=== PATIENT | female | born 1955 | race Caucasian/White ===

== ENCOUNTER 2018-12-12 05:27 | Day surgery (SDC) | payer MEDICARE ==
[2018-12-12] MEDS ORDERED: Midazolam 1 MG/ML 2 ML SDV IV ONE ×5 (05:28→06:41)
[2018-12-12] MEDS ORDERED: fentaNYL 100 MCG/2 ML SDV IV ONE ×3 (05:28→06:35)
[2018-12-12] MEDS ORDERED: Midazolam 1 MG/ML 2 ML SDV ONE (06:18)
[2018-12-12] MEDS ORDERED: fentaNYL 100 MCG/2 ML SDV ONE (06:19)
--- NOTE | 2018-12-12 07:28 | OR ---
DATE: 12/12/2018 PROCEDURE: Total colonoscopy. INSTRUMENT USED: [id number] Olympus video colonoscope. PREMEDICATIONS: Fentanyl 100 mcg intravenous, Versed 3 mg intravenous, nasal O2 cannula. The procedure was done under pulse oximetry, BP recording, and gambling monitor INDICATION: Screening colonoscopic examination is done for detection of any polypoid lesions and removal, endoscopic hemostasis therapy if needed. DESCRIPTION OF PROCEDURE: Initial rectal exam was unremarkable. Rigid anoscopy showed small internal hemorrhoids without bleeding from them. The colonoscope was passed with ease. Numerous scattered diverticula were noted in the entire colon, more so in the distal left colon along with deformity. The scope was passed with ease up to the ileocecal area. Photographs were taken of the normal- appearing cecum identified by landmarks of appendiceal orifice and double-bulged ileocecal folds. No bleeding was noted from any of the visualized areas of the examination. The bowel preparation was found to adequate, [place] scale 3. No stricture. No vascular ectasia. No large isolated ulcerations seen. No evidence of diffuse inflammatory bowel disease in the form of friability, contact bleeding, or ulcerations. No polyp or tumor mass identified. Probing the proximal sides of folds and flexures using adequate distention and clearing up the stool material, withdrawal of the scope was made. Cecum to rectum time over 6 minutes. No bleeding was noted from any of the visualized areas at the completion of examination. IMPRESSION: 1. Internal hemorrhoids. 2. Declo diverticulosis. The patient tolerated the procedure well. [facility] /[id number]
[2018-12-12] MEDS ORDERED: Sodium Chloride 0.9% 10 ML Syringe FLUSH PRN (07:36)
[2018-12-12] MEDS ORDERED: Dextrose 5%-0.45% NaCl 1,000 ML IV SCH (07:45)
== END 2018-12-12 08:50 | disposition home or self-care (01) ==
LOC: DL.ENDO 05:27
PROVIDERS: ATTEND Internal Medicine Gastroenterology
DX: Z12.11 Encounter for screening for malignant neoplasm of colon (principal); K57.30 Diverticulosis of large intestine without perforation or abscess without bleeding; K64.8 Other hemorrhoids; K63.89 Other specified diseases of intestine; I10 Essential (primary) hypertension; E11.9 Type 2 diabetes mellitus without complications; E78.5 Hyperlipidemia, unspecified; E66.09 Other obesity due to excess calories; F17.210 Nicotine dependence, cigarettes, uncomplicated; Z95.0 Presence of cardiac pacemaker; Z95.5 Presence of coronary angioplasty implant and graft; Z79.84 Long term (current) use of oral hypoglycemic drugs; Z68.41 Body mass index [BMI] 40.0-44.9, adult
CPT/HCPCS: G0121; J2250; J3010; J7042